=== PATIENT | male | born 1985 | race Caucasian/White ===

== ENCOUNTER 2021-01-24 11:33 | Emergency (ER) | payer OTHER ==
[~2021-01-24] VITALS: Ht 188 cm; Wt 100.5 kg
--- NOTE | 2021-01-24 12:27 | REP ---
INDICATION: blurred vision, numbness COMPARISON: None. TECHNIQUE: Axial noncontrast images from the skull base to the vertex with coronal reformations. This CT examination was performed using the following dose reduction techniques: Automated exposure control, adjustment of mA and/or kv according to the patient's size, and use of iterative reconstruction technique. FINDINGS: The ventricles, sulci, and cisterns are normal in position and appearance. Cornelius-white differentiation is maintained. No acute intracranial hemorrhage, mass/mass effect, pathology or trauma/injury. No evidence for acute infarction. No extra-axial fluid collection. Calvarium is intact. Paranasal sinuses and mastoid air cells are clear. IMPRESSION: Normal noncontrast head CT. No evidence for acute intracranial pathology or trauma/injury. <Electronically signed by Laith Meza > 01/24/21 [id number]
--- NOTE | 2021-01-24 12:55 | REP ---
INDICATION: r/o fx COMPARISON: None. TECHNIQUE: AP and frog-lateral views of the right femur. FINDINGS: Femur appears intact and without acute fracture or dislocation. IMPRESSION: . No acute fracture or dislocation. <Electronically signed by Laith Meza > 01/24/21 [id number]
--- NOTE | 2021-01-24 13:28 | REP ---
INDICATION: lump in upper thigh after exercise unable to flex ? tear COMPARISON: None TECHNIQUE: Real time brown scale ultrasound examination using linear high-frequency transducer. FINDINGS: Directed ultrasound examination demonstrates a small amount of fluid adjacent to the quadriceps muscle at the level of maximal pain. Findings are nonspecific. IMPRESSION: Very small fluid collection adjacent to the quadriceps muscle in the area of maximal pain. No further obvious abnormality by ultrasound examination. <Electronically signed by Laith Meza > 01/24/21 [id number]
[2021-01-24] MEDS ORDERED: HYDR-4571 PO (14:09)
[2021-01-24 14:20] VITALS: BP 127/74
== END 2021-01-24 14:26 | disposition home or self-care (01) ==
LOC: M ED 11:33
DX: S76.111A Strain of right quadriceps muscle, fascia and tendon, initial encounter (principal); X58.XXXA Exposure to other specified factors, initial encounter; Y92.89 Other specified places as the place of occurrence of the external cause; Y99.1 Military activity; R51.9 Headache, unspecified